=== PATIENT | female | born 1980 | race Caucasian/White ===

== ENCOUNTER 2018-11-13 16:50 | Emergency (ER) | payer MEDICAID ==
[~2018-11-13] VITALS: Ht 165.1 cm; Wt 125.8 kg
[~2018-11-13 16:50] MED LIST: ALBU8.5H8 IH; ONDA4TAB6 PO; OXYC-145 PO
[2018-11-13 17:17] LABS: BASOPHILS # (AUTO) 0.1 X10'3 (0-0.2); BASOPHILS % (AUTO) 0.6 % (0-1); EOSINOPHILS # (AUTO) 0.1 X10'3 (0-0.9); EOSINOPHILS % (AUTO) 1.4 % (0-6); HEMATOCRIT 36.9 % (35.0-45.0); HEMOGLOBIN 12.3 g/dl (12.0-16.0); LYMPHOCYTES # (AUTO) 2.6 X10'3 (1.1-4.8); LYMPHOCYTES % (AUTO) 28.3 % (21-51); MEAN CORPUSCULAR HEMOGLOBIN 27.1 PG (27.0-31.0); MEAN CORPUSCULAR HGB CONC 33.3 % (33.0-36.5); MEAN CORPUSCULAR VOLUME 81.4 FL (78-98); MONOCYTES # (AUTO) 0.4 X10'3 (0-0.9); MONOCYTES % (AUTO) 4.6 % (2-12); NEUTROPHILS % (AUTO) 65.1 % (42-75); PLATELET COUNT 250 X10'3 (140-440); RED BLOOD COUNT 4.53 X10'6 (4.20-5.60); RED CELL DISTRIBUTION WIDTH 14.2 % (11.5-14.5); WHITE BLOOD COUNT 9.2 X10'3 (4.5-11.0)
[2018-11-13 17:33] LABS: ALANINE AMINOTRANSFERASE 24 U/L (12-78); ALBUMIN 3.6 G/DL (3.4-5.0); ALBUMIN/GLOBULIN RATIO 0.8 (1.1-1.5); ALKALINE PHOSPHATASE 60 IU/L (46-116); ANION GAP 16 (8-16); ASPARTATE AMINO TRANSFERASE 15 U/L (10-37); BILIRUBIN,TOTAL 0.4 MG/DL (0.1-1.0); BLOOD UREA NITROGEN 9 MG/DL (7-18); BUN/CREATININE RATIO 11.1 (6.6-38.0); CALCIUM 9.1 MG/DL (8.5-10.1); CHLORIDE 102 MMOL/L (99-107); CREATININE 0.81 MG/DL (0.40-0.90); GLUCOSE 94 MG/DL (70-104); POTASSIUM 3.4 MMOL/L (3.5-5.1); SODIUM 139 MMOL/L (135-145); TOTAL CARBON DIOXIDE 21.3 MMOL/L (24-32); eGFR 80 ML/MIN
[2018-11-13 17:58] LABS: TROPONIN I < 0.04 NG/ML (0.0-0.05)
--- NOTE | 2018-11-13 18:02 | NUR ---
Patient ambulated to restroom with steady gait, urine sample collected and sent to lab.
[2018-11-13] MEDS ORDERED: PENI-88 PO (18:30)
[2018-11-13 18:31] VITALS: BP 148/97
== END 2018-11-13 18:37 | disposition home or self-care (01) ==
LOC: ER 16:51
DX: R07.81 Pleurodynia (principal); K04.7 Periapical abscess without sinus; I10 Essential (primary) hypertension; E66.9 Obesity, unspecified; K02.9 Dental caries, unspecified; J45.909 Unspecified asthma, uncomplicated; Z56.0 Unemployment, unspecified; Z88.4 Allergy status to anesthetic agent; Z88.5 Allergy status to narcotic agent
CPT/HCPCS: 36415; 71045; 80053; 84484; 85025; 93005; 99284

== ENCOUNTER 2020-11-25 15:29 | Emergency (ER) | payer MEDICAID, OTHER ==
[~2020-11-25] VITALS: Ht 165.1 cm; Wt 134.1 kg
[2020-11-25 16:37] LABS: BASOPHILS # (AUTO) 0.1 X10'3 (0-0.2); BASOPHILS % (AUTO) 0.8 % (0-1); EOSINOPHILS # (AUTO) 0.1 X10'3 (0-0.9); EOSINOPHILS % (AUTO) 0.8 % (0-6); HEMATOCRIT 36.8 % (35.0-45.0); MEAN CORPUSCULAR HEMOGLOBIN 26.7 PG (27.0-31.0); MEAN CORPUSCULAR HGB CONC 32.7 g/dL (33.0-36.5); MEAN CORPUSCULAR VOLUME 81.7 FL (78-98); MEAN PLATELET VOLUME 8.8 FL (7.4-10.4); MONOCYTES # (AUTO) 0.6 X10'3 (0-0.9); MONOCYTES % (AUTO) 6.7 % (2-12); NEUTROPHILS % (AUTO) 68.7 % (42-75); PLATELET COUNT 232 X10'3 (140-440); RED CELL DISTRIBUTION WIDTH 14.1 % (11.5-14.5); WHITE BLOOD COUNT 8.8 X10'3 (4.5-11.0)
[2020-11-25 16:50] LABS: ALANINE AMINOTRANSFERASE 19 U/L (12-78); ALBUMIN 3.4 G/DL (3.4-5.0); ALBUMIN/GLOBULIN RATIO 0.8 (1.1-1.5); ALKALINE PHOSPHATASE 54 IU/L (46-116); ANION GAP 12 (8-16); ASPARTATE AMINO TRANSFERASE 13 U/L (10-37); BILIRUBIN,TOTAL 0.3 MG/DL (0.1-1.0); BLOOD UREA NITROGEN 20 MG/DL (7-18); BUN/CREATININE RATIO 23.5 (6.6-38.0); CALCIUM 8.9 MG/DL (8.5-10.1); CHLORIDE 103 MMOL/L (99-107); CREATININE 0.85 MG/DL (0.40-0.90); GLUCOSE 90 MG/DL (70-104); POTASSIUM 3.6 MMOL/L (3.5-5.1); SODIUM 139 MMOL/L (135-145); TOTAL CARBON DIOXIDE 23.9 MMOL/L (24-32); TOTAL PROTEIN 7.8 G/DL (6.4-8.2); eGFR 75 ML/MIN
[2020-11-25] MEDS ORDERED: amLODIPine 5mg tablet PO ONE (18:00)
[2020-11-25] MEDS ORDERED: normal saline 1000ML IV soln IVB ONE (18:00)
[2020-11-25] MEDS ORDERED: iohexol 350MG/ML 100ml bottle IV ONE (18:06)
[2020-11-25 19:07] LABS: D-DIMER 0.42 MG/L FEU (0-0.50)
[2020-11-25] MEDS ORDERED: AMLO5TAB4 PO (19:22)
[2020-11-25] MEDS ORDERED: acetaminophen 325mg tablet PO ONE ×2 (19:40)
--- NOTE | 2020-11-25 19:44 | NUR ---
pt given 975 mg PO tylenol for HO prior to dc per MD
[2020-11-25 19:57] VITALS: BP 150/90
== END 2020-11-25 19:58 | disposition home or self-care (01) ==
LOC: ER 15:29
DX: I10 Essential (primary) hypertension (principal); R06.00 Dyspnea, unspecified; L08.9 Local infection of the skin and subcutaneous tissue, unspecified; J45.909 Unspecified asthma, uncomplicated; Z56.0 Unemployment, unspecified; Z79.899 Other long term (current) drug therapy
CPT/HCPCS: 36415; 71045; 71275; 76937; 80053; 83880; 84484; 85025; 85379; 93005; 96360; 99285; J7030; Q9967